=== PATIENT | female | born 2005 | race Caucasian/White ===

== ENCOUNTER 2023-11-23 13:02 | Outpatient (CLI) | payer BC | END 2023-11-23 13:03 | disposition home or self-care (01) | LOC: MRI 13:02 | PROVIDERS: ATTEND Psychiatry & Neurology Neurology | DX: G45.9 Transient cerebral ischemic attack, unspecified (principal) | CPT/HCPCS: 70553; 93306; 93880 ==

== ENCOUNTER 2023-11-27 14:34 | Outpatient (CLI) | payer BC | END 2023-11-27 14:35 | disposition home or self-care (01) | PROVIDERS: ATTEND Psychiatry & Neurology Neurology | DX: G45.9 Transient cerebral ischemic attack, unspecified (principal) | CPT/HCPCS: 93225; 93226 ==